=== PATIENT | male | born 1995 | race Two or more races ===

== ENCOUNTER 2023-05-09 20:40 | Emergency (ER) | payer OTHER ==
[~2023-05-09] VITALS: Ht 190.5 cm; Wt 108.9 kg
[~2023-05-09 20:40] MED LIST: ESTRATERA
[2023-05-09 23:20] LABS: MEAN CELL VOLUME 84.1 fL (80.0-100.00); MEAN CORPUSCULAR HEMOGLOBIN 28.7 pg (27.00-32.0); MEAN CORPUSCULAR HGB CONC 34.1 g/dl (32.0-36.0); PLATELET COUNT 239 K/uL (150-450); RED BLOOD COUNT 5.23 M/uL (4.00-6.00); RED CELL DISTRIBUTION WIDTH 13.4 % (11.5-14.5)
[2023-05-09 23:41] LABS: CALCIUM 9.2 mg/dL (8.5-10.1); CREATININE SERUM 0.87 mg/dL (0.70-1.30); GFR 104.49; POTASSIUM 3.67 mEq/L (3.5-5.1)
== END 2023-05-10 03:09 | disposition home or self-care (01) ==
LOC: ER 20:41
PROVIDERS: Nurse Practitioner Family
DX: K52.9 Noninfective gastroenteritis and colitis, unspecified (principal)

== ENCOUNTER 2023-05-10 11:39 | Inpatient (IN) | payer OTHER ==
[~2023-05-10] VITALS: Ht 172.7 cm; Wt 113.4 kg
[2023-05-10 12:30] LABS: HEMATOCRIT 45.7 % (39.0-48.0); HEMOGLOBIN 15.3 g/dL (13-16.00); MEAN CELL VOLUME 84.3 fL (80.0-100.00); MEAN CORPUSCULAR HEMOGLOBIN 28.3 pg (27.00-32.0); MEAN CORPUSCULAR HGB CONC 33.6 g/dl (32.0-36.0); PLATELET COUNT 239 K/uL (150-450); RED BLOOD COUNT 5.42 M/uL (4.00-6.00); RED CELL DISTRIBUTION WIDTH 13.7 % (11.5-14.5)
[2023-05-10 12:54] LABS: ALBUMIN 3.9 gm/dL (3.4-5.0); BILIRUBIN TOTAL 1.13 mg/dL (0.3-1.2); CALCIUM 8.9 mg/dL (8.5-10.1); CREATININE SERUM 1.06 mg/dL (0.70-1.30); GFR 83.19; POTASSIUM 3.85 mEq/L (3.5-5.1); TOTAL PROTEIN 7.9 gm/dL (6.4-8.2)
[2023-05-10 22:16] LABS: INR 1.01; PROTHROMBIN TIME 10.6 SECONDS (9.0-11.5)
[2023-05-11 16:19] LABS: CALCIUM 8.6 mg/dL (8.5-10.1); CHOL HDL RATIO 5.7 (0-5.0); CREATININE SERUM 0.9 mg/dL (0.70-1.30); GFR 100.48; POTASSIUM 3.8 mEq/L (3.5-5.1)
[2023-05-11 22:26] LABS: PH,URINE 5.5 (5.0-8.0); URINE APPEARANCE Clear; URINE BILIRRUBIN Negative (NEGATIVE); URINE BLOOD Negative; URINE COLOR Yellow; URINE GLUCOSE Negative (NEGATIVE); URINE LEUKOCYTE Small; URINE NITRATE Negative; URINE PROTEIN Negative (NEGATIVE)
[2023-05-11 22:30] LABS: URINE BACTERIA 183.9 uL (0.0-1933); URINE RBC 7.1 uL (0.0-20.8); URINE WBC 70.6 uL (0.0-23.2)
[2023-05-11 22:41] LABS: URINE CRYSTALS FEW /HPF; URINE MUCUS SCANT
[2023-05-14 07:46] LABS: HEMATOCRIT 40.8 % (39.0-48.0); HEMOGLOBIN 14.1 g/dL (13-16.00); MEAN CELL VOLUME 83.7 fL (80.0-100.00); MEAN CORPUSCULAR HEMOGLOBIN 28.9 pg (27.00-32.0); MEAN CORPUSCULAR HGB CONC 34.5 g/dl (32.0-36.0); PLATELET COUNT 221 K/uL (150-450); RED BLOOD COUNT 4.88 M/uL (4.00-6.00); RED CELL DISTRIBUTION WIDTH 13.3 % (11.5-14.5)
[2023-05-14 07:55] LABS: ALBUMIN 3.5 gm/dL (3.4-5.0); BILIRUBIN TOTAL 0.82 mg/dL (0.3-1.2); CALCIUM 9.1 mg/dL (8.5-10.1); CREATININE SERUM 0.88 mg/dL (0.70-1.30); GFR 103.11; GLOBULINA 3.2 G/DL (2.4-3.5); POTASSIUM 3.72 mEq/L (3.5-5.1); TOTAL PROTEIN 6.7 gm/dL (6.4-8.2)
== END 2023-05-14 18:39 | disposition home or self-care (01) | DRG 390 ==
LOC: ER 11:39 → SURG 19:56 → SURH 05-14 14:14
PROVIDERS: General Practice; ADMIT Specialist; ATTEND Specialist
PROC: BW21YZZ Computerized Tomography (CT Scan) of Abdomen and Pelvis using Other Contrast (ICD-10-PCS; principal; 2023-05-10)
DX: K56.50 Intestinal adhesions [bands], unspecified as to partial versus complete obstruction (principal); Z20.822 Contact with and (suspected) exposure to COVID-19

== ENCOUNTER 2023-09-04 15:47 | Emergency (ER) | payer OTHER ==
[~2023-09-04] VITALS: Ht 190.5 cm; Wt 108.9 kg
[2023-09-04] MEDS ORDERED: ACETAMINOPHEN 500 MG GEL..CAP PO ONE (17:00)
[2023-09-04] MEDS ORDERED: DEXAMETHASONE SODIUM PHOSPHATE 4 MG/ML VIAL IM ONE (17:00)
[2023-09-04] MEDS ORDERED: CLINDAMYCIN PHOSPHATE 150 MG/ML (600mg) IM ONE (17:00)
[2023-09-04] MEDS ORDERED: KETOROLAC TROMETHAMINE 30 MG VIAL IM ONE (17:00)
== END 2023-09-04 19:30 | disposition home or self-care (01) ==
LOC: ER 15:47
DX: J03.80 Acute tonsillitis due to other specified organisms (principal)

== ENCOUNTER 2023-09-25 17:12 | Emergency (ER) | payer OTHER ==
[~2023-09-25] VITALS: Ht 190.5 cm; Wt 106.6 kg
[2023-09-25] MEDS ORDERED: CEFTRIAXONE SODIUM 1,000 MG VIAL IM STA (17:46)
[2023-09-25 18:11] LABS: HEMOGLOBIN 13.1 g/dL (13-16.00); MEAN CELL VOLUME 83.2 fL (80.0-100.00); MEAN CORPUSCULAR HEMOGLOBIN 28.7 pg (27.00-32.0); MEAN CORPUSCULAR HGB CONC 34.5 g/dl (32.0-36.0); PLATELET COUNT 232 K/uL (150-450); RED BLOOD COUNT 4.56 M/uL (4.00-6.00); RED CELL DISTRIBUTION WIDTH 12.8 % (11.5-14.5)
== END 2023-09-25 18:24 | disposition home or self-care (01) ==
LOC: ER 17:12
PROVIDERS: Emergency Medicine
DX: B27.90 Infectious mononucleosis, unspecified without complication (principal)